=== PATIENT | female | born 1930 | race Native Hawaiian/Other Pacific Islander ===

== ENCOUNTER 2018-02-17 15:51 | Outpatient (CLI) | payer OTHER ==
[2018-02-17 16:23] LABS: PLATELET COUNT 165 K/uL (152-353)
[2018-02-17 16:52] LABS: POTASSIUM 4.9 mmol/L (3.6-5.2)
== END 2018-02-17 20:38 | disposition home or self-care (01) ==
LOC: LABW 15:51
PROVIDERS: Internal Medicine
DX: N18.3 Chronic kidney disease, stage 3 (moderate) (principal); M25.50 Pain in unspecified joint; D64.9 Anemia, unspecified; D51.9 Vitamin B12 deficiency anemia, unspecified
CPT/HCPCS: 36415; 80053; 81000; 82043; 82306; 82330; 82552; 82570; 82728; 82746; 83540; 83550; 83735; 83970; 84100; 84155; 84550; 85027; 85651; 86430

== ENCOUNTER 2018-03-04 10:16 | Outpatient (CLI) | payer OTHER | END 2018-03-04 22:32 | disposition home or self-care (01) | LOC: LABW 10:16 | DX: R19.7 Diarrhea, unspecified (principal) | CPT/HCPCS: 82272; 83630; 87015; 87045; 87324; 87328; 87329; 87449; 87507; 87899 ==

== ENCOUNTER → 2018-03-12 11:28 | Outpatient (CLI) | payer OTHER | END | disposition home or self-care (01) | LOC: AMB 11:28 | DX: I46.9 Cardiac arrest, cause unspecified (principal) ==